=== PATIENT | female | born 1945 | race Caucasian/White ===

== ENCOUNTER → 2020-11-09 | Day surgery (SDC) | payer OTHER ==
[~2020-11-09] VITALS: Ht 162.6 cm; Wt 102.1 kg
[~2020-11-09] MED LIST: ASPI325T4 PO; BENA40TA8 PO; CIPROFLOXACIN 400MG/200ML 0 ML IV ONE; CONJ ESTROGENS 0.625MG/GM VAG CRM 30GM PV ONE; DexAMETHasone SOD PHOS 10MG/1ML VIAL INJ IV ONE; FELO2.5T3 PO; GLYCOPYRROLATE 0.2 MG/ML 1ML VIAL ONE; HYDROmorphone HCL 2 MG/ML VL IV PRN; LIDOCAINE 2% (LOCAL ANESTH.) PF 5ml SDV ONE; LIDOCAINE W/ EPINEPHRINE 1% 20ML VIAL ONE; MEPERIDINE HCL (50 MG/ML) 1 ML VIAL ONE; MIDAZOLAM HCL 1MG/1ML-2 ML VIAL ONE; MULT-1018 PO; NEOSTIGMINE 1 MG/ML INJ (10mg/10ML VIAL) ONE; OMEP20TA PO; ONDANSETRON HCL 4 MG/2 ML VIAL IV ONE; ONDANSETRON HCL 4 MG/2 ML VIAL IV PRN; OXYB5TAB24 PO; PROPOFOL 10 MG/ML 20 ML IV ONE; ROCURONIUM 10MG/ML 10ML VIAL IV ONE; ROSU20TA14 PO; SERT-274 PO; ceFAZolin 1GM/50ML 50 ML IV ONE; ePHEDrine SULFATE 50 MG/ML AMP IV ONE; fentaNYL CITRATE 100 MCG/2 ML VL ONE
[2020-11-09 17:00] VITALS: BP 130/76
== END | disposition home or self-care (01) ==
LOC: SUR 11:53
PROVIDERS: ATTEND Urology
DX: N81.6 Rectocele (principal); I10 Essential (primary) hypertension; E66.9 Obesity, unspecified; Z68.38 Body mass index [BMI] 38.0-38.9, adult; Z20.822 Contact with and (suspected) exposure to COVID-19; Z98.890 Other specified postprocedural states; Z79.899 Other long term (current) drug therapy; Z88.2 Allergy status to sulfonamides
CPT/HCPCS: 57250; 88302; J0690; J1100; J2001; J2175; J2250; J2405; J2704; J3010; U0003